=== PATIENT | male | born 1960 | race American Indian/Alaskan Native ===

== ENCOUNTER 2017-07-05 03:19 | Inpatient (IN) | payer MEDICARE ==
[2017-07-05 05:17] LABS: Hematocrit 40.7 % (35.5-45.6); Mean Corpuscular HGB Conc 35 % (32-34); Mean Corpuscular Hemoglobin 29 pg (28-32); Mean Corpuscular Volume 83 fl (84-94); Platelet Count 244 K/mm3 (140-440); Red Blood Count 4.89 M/mm3 (3.65-5.03); Red Cell Distribution Width 15.1 % (13.2-15.2)
[2017-07-05 05:35] LABS: BUN/Creatinine Ratio 17; Blood Urea Nitrogen 15 mg/dL (9-20); Calcium 9.2 mg/dL (8.4-10.2); Hemolysis Index 1
[2017-07-05 05:51] LABS: Band Neutrophils # (Manual) 0.8 K/mm3; Basophils % (Manual) 0 % (0.0-1.8); Eosinophils % (Manual) 0 % (0.0-4.3); Total Cells Counted 100
[2017-07-05 05:52] LABS: RBC Morphology Normal
[2017-07-05] MEDS ORDERED: NACL 0.9% 1000 ML 1,000 ML ONE (06:29)
[2017-07-05] MEDS ORDERED: NACL 0.9% 1000 ML 1,000 ML IV ONE (06:33)
[2017-07-05 06:46] LABS: Bacteria,Urine 1+ /HPF (Negative); Bilirubin,Urine NEG (Negative); Blood,Urine LG (Negative); Color,Urine Yellow (Yellow); Mucus,Urine FEW /HPF; Urobilinogen,Urine < 2.0 mg/dL (<2.0); WBC,Urine > 182.0 /HPF (0.0-6.0)
[2017-07-05] MEDS ORDERED: NACL 0.9% 1000 ML 3,000 ML IV ONE (07:07)
[2017-07-05] MEDS ORDERED: ZOFRAN IV ONE (07:07)
[2017-07-05] MEDS ORDERED: TYLENOL PO ONE (07:08)
[2017-07-05] MEDS ORDERED: SUBLIMAZE IV ONE (07:09)
[2017-07-05] MEDS ORDERED: HumuLIN R IV ONE (07:11)
[2017-07-05] MEDS ORDERED: BABY ASPIRIN PO ONE (07:12)
--- NOTE | 2017-07-05 07:12 | Emergency Department Report ---
HPI - General Chief Complaint: Fever Time Seen by Provider: 07/05/17 07:05 - HPI HPI: The patient is a 57-year-old male with a history of diabetes, presents for evaluation of abdominal and flank pain. The patient reports constant lower abdominal pain and bilateral flank pain for the past 1 week, progressive, moderate in severity, crampy in quality, and associated with dysuria. The patient shares that he was diagnosed with a urinary tract infection within the past 2-3 weeks. He reports compliance with antibiotics but worsening of his symptoms nonetheless. Prior to the past week he had not experienced bilateral flank pain. The patient denies trauma to the abdomen or flank, chills, night sweats, diarrhea, blood in the stool, dark tarry stool, genital discharge, inability to pass flatus. ED Past Medical Hx - Past Medical History Hx Hypertension: Yes Hx Diabetes: Yes - Surgical History Additional Surgical History: Vasectomy - Social History Smoking Status: Former Smoker Substance Use Type: None - Medications Home Medications: Home Medications Medication Instructions Recorded Confirmed Last Taken Type Glipizide/Metformin HCl 2 each PO BID 07/05/17 07/05/17 Unknown History [glipiZIDE-Metformin 5-500 mg] Insulin NPH Hum/Reg Insulin Hm 15 unit SQ QDAY 07/05/17 07/05/17 Unknown History [Humulin 70-30 Vial] Lisinopril [Zestril] 20 mg PO QDAY 07/05/17 07/05/17 Unknown History Tamsulosin [Flomax] 0.4 mg PO QDAY 07/05/17 07/05/17 Unknown History ED Review of Systems ROS: Stated complaint: FEVER,DIABETIC,,VOMITING Other details as noted in HPI Constitutional: denies: fever ENT: denies: throat or neck pain Respiratory: denies: cough, shortness of breath Cardiovascular: denies: chest pain Endocrine: denies unexplained weight loss or gain Gastrointestinal: reports abdominal pain, nausea Genitourinary: reports dysuria Musculoskeletal: denies: leg swelling Skin: denies: rash Neurological: denies: headache Hematological/Lymphatic: denies: easy bleeding or easy bruising Psych: denies sadness or hopelessness Physical Exam - Physical Exam Vital Signs: Vital Signs 07/05/17 07/05/17 07/05/17 04:26 04:48 06:34 Temperature 100.7 F H 100.7 F H 100.7 F H Pulse Rate 133 H 131 H 107 H Respiratory 18 18 20 Rate Blood Pressure 141/80 141/80 Blood Pressure 117/75 [Left] O2 Sat by Pulse 97 96 98 Oximetry 07/05/17 06:39 Temperature Pulse Rate Respiratory 20 Rate Blood Pressure Blood Pressure [Left] O2 Sat by Pulse 98 Oximetry Physical Exam: General: well-nourished, well-developed, no acute distress Head: Normocephalic, atraumatic Eyes: normal sclera ENT: Mucous membranes are pale and dry Neck: No neck stiffness, no cervical adenopathy Respiratory: Breath sounds equal bilaterally, no wheezing, rales, or rhonchi Cardio: S1 and S2 present, no murmurs, rubs, gallops, capillary refill is delayed Abdomen: Normoactive bowel sounds, soft abdomen, suprapubic and left lower quadrant tenderness to palpation present, no rigidity, no guarding or rebound tenderness Chest WALL/Back: No tenderness to palpation of the chest wall, bilateral CVA tenderness with percussion is present Musc: No pitting edema Skin: No rash Neuro: no facial drooping, normal speech Psych: Normal affect ED Course Vital Signs 07/05/17 07/05/17 07/05/17 04:26 04:48 06:34 Temperature 100.7 F H 100.7 F H 100.7 F H Pulse Rate 133 H 131 H 107 H Respiratory 18 18 20 Rate Blood Pressure 141/80 141/80 Blood Pressure 117/75 [Left] O2 Sat by Pulse 97 96 98 Oximetry 07/05/17 06:39 Temperature Pulse Rate Respiratory 20 Rate Blood Pressure Blood Pressure [Left] O2 Sat by Pulse 98 Oximetry ED Medical Decision Making - Lab Data Result diagrams: 07/05/17 04:59 07/05/17 04:59 - Medical Decision Making The patient was seen and examined by myself. The patient is placed on a cardiac rehabilitation program director and continuous pulse ox. On initial evaluation, the patient was found to be in no distress, although tachycardic and febrile, temperature 100.7. Evaluation orders are placed. IV access is established and the patient is given 1 L normal saline fluid bolus and Zofran for nausea, and IV analgesic for pain. He was given Tylenol for his elevated temperature. Lab results revealed elevated WBC of 16.9, elevated glucose of 265, and elevated urine WBC of 180 with positive leukocyte esterase and positive bacteria, consistent with acute urinary tract infection. As the patient's found to have results consistent with urinary tract infection, and has fever and bilateral flank pain , evaluation findings are consistent with acute pyelonephritis. The patient is given IV Zosyn for treatment of pyelonephritis. CT scan abdomen and pelvis is negative for appendicitis. Sclerotic and lytic lesions in the left intertrochanteric femoral region were observed on the CT scan and the patient was informed of so. Dedicated left femur radiographs are ordered and are pending. The on-call hospitalist service was contacted and informed of findings . They agreed to admit the patient for further treatment, evaluation, and close monitoring. The ED admit order was placed. The patient was admitted in guarded condition. Critical care attestation.: If time is entered above; I have spent that time in minutes in the direct care of this critically ill patient, excluding procedure time. ED Disposition Clinical Impression: Dehydration, Pyelonephritis, acute, Acute hyperglycemia, Acute abdominal pain in left lower quadrant, Bilateral flank pain Disposition: OP ADMIT IP TO THIS HOSP Is pt being admited?: Yes Does the pt Need Aspirin: Yes Condition: Serious Referrals: WILLIAN YOUNGBLOOD MD [Primary Care Provider] - 3-5 Days Time of Disposition: 07:10
[2017-07-05] MEDS ORDERED: NACL ONE (07:26)
[2017-07-05 07:44] LABS: Alanine Aminotransferase 27 units/L (7-56); Albumin 3.6 g/dL (3.9-5); Lipase 31 units/L (13-60)
[2017-07-05 07:53] LABS: Bilirubin,Direct < 0.2 mg/dL (0-0.2)
[2017-07-05] MEDS ORDERED: ZOSYN/NS 3.375GM/50ML 3.375 GM/50 ML BAG IV SCH (08:00)
--- NOTE | 2017-07-05 08:15 | Cat Scan Report ---
FINAL REPORT EXAM: CT ABDOMEN PELVIS W CON HISTORY: right flank and abdominal pain, fever, n/v TECHNIQUE: CT images are acquired through the Abdomen and Pelvis in late arterial and delayed phases following intravenous administration of contrast. Transaxial, coronal and sagittal reformations are provided. PRIORS: None FINDINGS: Partially visualized intrathoracic contents are unremarkable. The liver, gallbladder, pancreas, spleen, and adrenal glands are unremarkable. Kidneys show no worrisome lesions, hydronephrosis, or calculi. There is a 2.7 centimeter simple interpolar right renal cyst urinary bladder is unremarkable. Small and large bowel are normal in caliber. Appendix is normal. No free air, free fluid, or lymphadenopathy identified. Aorta is normal in course and caliber. Superficial soft tissues are unremarkable. No acute or aggressive appearing skeletal findings. Partially visualized intertrochanteric left femoral lesion shows lytic and sclerotic components with suggested narrow zone of transition. IMPRESSION: No acute findings in the abdomen or pelvis. Partially visualized intertrochanteric left femoral lesion shows lytic and sclerotic components with suggested narrow zone of transition. Although incompletely evaluated on this exam, initial differential diagnosis includes bone infarct, nonossifying fibroma another probably benign entities. Routine follow-up left femur radiographs are recommended for initial further evaluation.
[2017-07-05] MEDS ORDERED: DILAUDID IV PRN (09:08)
[2017-07-05] MEDS ORDERED: D50W (25GM) Syringe IV PRN (09:13)
--- NOTE | 2017-07-05 11:14 | History and Physical Report ---
History of Present Illness Date of examination: 07/05/17 Date of admission: 07/05/17 08:42 Chief complaint: Bilateral back pain with fever History of present illness: Patient is a 57-year-old male with past medical history of hypertension, diabetes mellitus, BPH, who presents to the hospital with complaints of bilateral flank lower back pain that has been ongoing for a few weeks has been on to complete doses of antibiotics with no resolution. Reports low-grade fever at home and also urinary hesitancy wash in his symptoms pain on the back is rated 6/10 in intensity . Testicle to him to come to the ER where he was noted to be with elevated white count and also low-grade fever with diagnosed acute cystitis. Patient denies any prior history of the same. He reports that the pain is constant and crampy in quality and the fistula would dysuria. He denies any trauma to his abdomen or back. ROS Constitutional: Fever but no, fatigue or weight loss. Skin: No rash. Eyes: No recent vision problems or eye pain. ENT: No congestion, ear pain, or sore throat. Endocrine: No thyroid problems. Cardiovascular: No chest pain. Respiratory: No cough, shortness of breath, congestion, or wheezing. Gastrointestinal: Bilateral flank pain No abdominal pain, nausea, vomiting, or diarrhea. Genitourinary: Reports dysuria Musculoskeletal: No joint swelling. Neurologic: No seizures. Hematologic: No unusual bruising or bleeding. Psychiatric: No psychiatric problems, hallucinations or depression. All other systems reviewed and otherwise negative. Past History Past Medical History: CAD, diabetes, hypertension, other (BPH) Past Surgical History: Other (vasectomy) Social history: , full code. denies: smoking, alcohol abuse, prescription drug abuse Family history: no significant family history Medications and Allergies Allergies Allergy/AdvReac Type Severity Reaction Status Date / Time No Known Allergies Allergy Unverified 07/05/17 04:55 Home Medications Medication Instructions Recorded Confirmed Last Taken Type Glipizide/Metformin HCl 2 each PO BID 07/05/17 07/05/17 Unknown History [glipiZIDE-Metformin 5-500 mg] Insulin NPH Hum/Reg Insulin Hm 15 unit SQ QDAY 07/05/17 07/05/17 Unknown History [Humulin 70-30 Vial] Lisinopril [Zestril] 20 mg PO QDAY 07/05/17 07/05/17 Unknown History Tamsulosin [Flomax] 0.4 mg PO QDAY 07/05/17 07/05/17 Unknown History Active Meds: Active Medications Dextrose (D50w (25gm) Syringe) 50 ml IV PRN PRN PRN Reason: Hypoglycemia Hydromorphone HCl (Dilaudid) 0.25 mg IV Q4H PRN PRN Reason: Pain, Moderate (4-6) Piperacillin Sod/Tazobactam Sod (Zosyn/Ns 4.5gm/100ml) 4.5 gm in 100 mls @ 200 mls/hr IV Q8HR AUDI; Protocol Insulin Human Isoph/Insulin Regular (Humulin 70/30) 15 unit SUB-Q QDAY AUDI Insulin Human Lispro (Humalog) 0 unit SUB-Q ACHS AUDI; Protocol Lisinopril (Zestril) 20 mg PO QDAY AUDI Tamsulosin HCl (Flomax) 0.4 mg PO QDAY AUDI Exam - Physical Exam Narrative exam: VITAL SIGNS: Reviewed. GENERAL: The patient appeared well nourished and normally developed. Otherwise ill appearing. Uncomfortable. Vital signs as documented. HEAD: No signs of head trauma. EYES: Pupils are equal. Extraocular motions intact. EARS: Hearing grossly intact. MOUTH: Oropharynx is normal. NECK: No adenopathy, no JVD. CHEST: Chest with clear breath sounds bilaterally. No wheezes, rales, or rhonchi. CARDIAC: Regular rate and rhythm. S1 and S2, without murmurs, gallops, or rubs. VASCULAR: No Edema. Peripheral pulses normal and equal in all extremities. ABDOMEN: Soft, without detectable tenderness. No sign of distention. No rebound or guarding, and no masses palpated. Bowel Sounds normal. Positive CVA tenderness MUSCULOSKELETAL: Good range of motion of all major joints. Extremities without clubbing, cyanosis or edema. NEUROLOGIC EXAM: Alert and oriented x 3. No focal sensory or strength deficits. Speech normal. Follows commands. PSYCHIATRIC: Mood normal. SKIN: No rash or lesions. - Constitutional Vitals: Temp Pulse Resp BP Pulse Ox 98.7 F 99 H 18 124/67 99 07/05/17 11:03 07/05/17 11:03 07/05/17 11:03 07/05/17 11:03 07/05/17 11:03 Results - Labs CBC & Chem 7: 07/05/17 04:59 07/05/17 04:59 Labs: Laboratory Last Values WBC 16.9 K/mm3 (4.5-11.0) H 07/05/17 04:59 RBC 4.89 M/mm3 (3.65-5.03) 07/05/17 04:59 Hgb 14.0 gm/dl (11.8-15.2) 07/05/17 04:59 Hct 40.7 % (35.5-45.6) 07/05/17 04:59 MCV 83 fl (84-94) L 07/05/17 04:59 MCH 29 pg (28-32) 07/05/17 04:59 MCHC 35 % (32-34) H 07/05/17 04:59 RDW 15.1 % (13.2-15.2) 07/05/17 04:59 Plt Count 244 K/mm3 (140-440) 07/05/17 04:59 Add Manual Diff Complete 07/05/17 04:59 Total Counted 100 07/05/17 04:59 Seg Neuts % (Manual) 84.0 % (40.0-70.0) H 07/05/17 04:59 Band Neutrophils % 5.0 % 07/05/17 04:59 Lymphocytes % (Manual) 4.0 % (13.4-35.0) L 07/05/17 04:59 Reactive Lymphs % (Man) 0 % 07/05/17 04:59 Monocytes % (Manual) 7.0 % (0.0-7.3) 07/05/17 04:59 Eosinophils % (Manual) 0 % (0.0-4.3) 07/05/17 04:59 Basophils % (Manual) 0 % (0.0-1.8) 07/05/17 04:59 Metamyelocytes % 0 % 07/05/17 04:59 Myelocytes % 0 % 07/05/17 04:59 Promyelocytes % 0 % 07/05/17 04:59 Blast Cells % 0 % 07/05/17 04:59 Nucleated RBC % Not Reportable 07/05/17 04:59 Seg Neutrophils # Man 14.2 K/mm3 (1.8-7.7) H 07/05/17 04:59 Band Neutrophils # 0.8 K/mm3 07/05/17 04:59 Lymphocytes # (Manual) 0.7 K/mm3 (1.2-5.4) L 07/05/17 04:59 Abs React Lymphs (Man) 0.0 K/mm3 07/05/17 04:59 Monocytes # (Manual) 1.2 K/mm3 (0.0-0.8) H 07/05/17 04:59 Eosinophils # (Manual) 0.0 K/mm3 (0.0-0.4) 07/05/17 04:59 Basophils # (Manual) 0.0 K/mm3 (0.0-0.1) 07/05/17 04:59 Metamyelocytes # 0.0 K/mm3 07/05/17 04:59 Myelocytes # 0.0 K/mm3 07/05/17 04:59 Promyelocytes # 0.0 K/mm3 07/05/17 04:59 Blast Cells # 0.0 K/mm3 07/05/17 04:59 WBC Morphology Not Reportable 07/05/17 04:59 Hypersegmented Neuts Not Reportable 07/05/17 04:59 Hyposegmented Neuts Not Reportable 07/05/17 04:59 Hypogranular Neuts Not Reportable 07/05/17 04:59 Smudge Cells Not Reportable 07/05/17 04:59 Toxic Granulation Not Reportable 07/05/17 04:59 Toxic Vacuolation Not Reportable 07/05/17 04:59 Dohle Bodies Not Reportable 07/05/17 04:59 Pelger-Huet Anomaly Not Reportable 07/05/17 04:59 Hank Rods Not Reportable 07/05/17 04:59 Platelet Estimate Appears normal 07/05/17 04:59 Clumped Platelets Not Reportable 07/05/17 04:59 Plt Clumps, EDTA Not Reportable 07/05/17 04:59 Large Platelets Not Reportable 07/05/17 04:59 Giant Platelets Not Reportable 07/05/17 04:59 Platelet Satelliting Not Reportable 07/05/17 04:59 Plt Morphology Comment Not Reportable 07/05/17 04:59 RBC Morphology Normal 07/05/17 04:59 Dimorphic RBCs Not Reportable 07/05/17 04:59 Polychromasia Not Reportable 07/05/17 04:59 Hypochromasia Not Reportable 07/05/17 04:59 Poikilocytosis Not Reportable 07/05/17 04:59 Anisocytosis Not Reportable 07/05/17 04:59 Microcytosis Not Reportable 07/05/17 04:59 Macrocytosis Not Reportable 07/05/17 04:59 Spherocytes Not Reportable 07/05/17 04:59 Pappenheimer Bodies Not Reportable 07/05/17 04:59 Sickle Cells Not Reportable 07/05/17 04:59 Target Cells Not Reportable 07/05/17 04:59 Tear Drop Cells Not Reportable 07/05/17 04:59 Ovalocytes Not Reportable 07/05/17 04:59 Helmet Cells Not Reportable 07/05/17 04:59 [place] Bodies Not Reportable 07/05/17 04:59 [place] Rings Not Reportable 07/05/17 04:59 Juma Cells Not Reportable 07/05/17 04:59 Bite Cells Not Reportable 07/05/17 04:59 Crenated Cell Not Reportable 07/05/17 04:59 Elliptocytes Not Reportable 07/05/17 04:59 Acanthocytes (Spur) Not Reportable 07/05/17 04:59 Rouleaux Not Reportable 07/05/17 04:59 Hemoglobin C Crystals Not Reportable 07/05/17 04:59 Schistocytes Not Reportable 07/05/17 04:59 Malaria parasites Not Reportable 07/05/17 04:59 [place] Bodies Not Reportable 07/05/17 04:59 Hem Pathologist Commnt No 07/05/17 04:59 VBG pH 7.407 (7.320-7.420) 07/05/17 04:59 Sodium 141 mmol/L (137-145) 07/05/17 04:59 Potassium 4.1 mmol/L (3.6-5.0) 07/05/17 04:59 Chloride 99.6 mmol/L (98-107) 07/05/17 04:59 Carbon Dioxide 23 mmol/L (22-30) 07/05/17 04:59 Anion Gap 23 mmol/L 07/05/17 04:59 BUN 15 mg/dL (9-20) 07/05/17 04:59 Creatinine 0.9 mg/dL (0.8-1.5) 07/05/17 04:59 Estimated GFR > 60 ml/min 07/05/17 04:59 BUN/Creatinine Ratio 17 % 07/05/17 04:59 Glucose 263 mg/dL (75-100) H 07/05/17 04:59 POC Glucose 252 (70-105) H 07/05/17 09:56 Lactic Acid 1.80 mmol/L (0.7-2.0) 07/05/17 07:15 Calcium 9.2 mg/dL (8.4-10.2) 07/05/17 04:59 Total Bilirubin 0.30 mg/dL (0.1-1.2) 07/05/17 07:15 Direct Bilirubin < 0.2 mg/dL (0-0.2) 07/05/17 07:15 Indirect Bilirubin 0.1 mg/dL 07/05/17 07:15 AST 16 units/L (5-40) 07/05/17 07:15 ALT 27 units/L (7-56) 07/05/17 07:15 Alkaline Phosphatase 99 units/L (35-129) 07/05/17 07:15 NT-Pro-B Natriuret Pep 23.87 pg/mL (0-900) 07/05/17 07:15 Total Protein 6.9 g/dL (6.3-8.2) 07/05/17 07:15 Albumin 3.6 g/dL (3.9-5) L 07/05/17 07:15 Albumin/Globulin Ratio 1.1 % 07/05/17 07:15 Lipase 31 units/L (13-60) 07/05/17 07:15 Urine Color Yellow (Yellow) 07/05/17 06:34 Urine Turbidity Clear (Clear) 07/05/17 06:34 Urine pH 5.0 (5.0-7.0) 07/05/17 06:34 Ur Specific [place] 1.011 (1.003-1.030) 07/05/17 06:34 Urine Protein 30 mg/dl mg/dL (Negative) 07/05/17 06:34 Urine Glucose (UA) 50 mg/dL (Negative) 07/05/17 06:34 Urine Ketones Neg mg/dL (Negative) 07/05/17 06:34 Urine Blood Lg (Negative) 07/05/17 06:34 Urine Nitrite Neg (Negative) 07/05/17 06:34 Urine Bilirubin Neg (Negative) 07/05/17 06:34 Urine Urobilinogen < 2.0 mg/dL (<2.0) 07/05/17 06:34 Ur Leukocyte Esterase Lg (Negative) 07/05/17 06:34 Urine WBC (Auto) > 182.0 /HPF (0.0-6.0) H 07/05/17 06:34 Urine RBC (Auto) 23.0 /HPF (0.0-6.0) 07/05/17 06:34 U Epithel Cells (Auto) < 1.0 /HPF (0-13.0) 07/05/17 06:34 Urine Bacteria (Auto) 1+ /HPF (Negative) 07/05/17 06:34 Urine WBC Clumps 2+ /HPF 07/05/17 06:34 Urine Mucus Few /HPF 07/05/17 06:34 - Imaging and Cardiology CT scan - abdomen: image reviewed (left femoral lesion lytic and sclerotic componets. ?fibroma) Assessment and Plan Assessment and plan: Patient is a 57-year-old male with past medical history of hypertension, diabetes mellitus, BPH, who presents to the hospital with complaints of bilateral flank lower back pain that has been ongoing for a few weeks has been on to complete doses of antibiotics with no resolution. Reports low-grade fever at home and also urinary hesitancy wash in his symptoms pain on the back is rated 6/10 in intensity . Testicle to him to come to the ER where he was noted to be with elevated white count and also low-grade fever with diagnosed acute cystitis. Patient denies any prior history of the same. He reports that the pain is constant and crampy in quality and the fistula would dysuria. He denies any trauma to his abdomen or back. Sepsis secondary to Acute cystitis -failed outpatient therapy, POA DM Type 2 with hyperglycemia Acute cystitis Flank Pain secondary to Acute cystitis HTN BPH Lytic lesion Plan Admit to [facility] Start empiric abx with zosyn Accucheck AC/HS Renal/Bladder US Flomax pAIN CONTROL IV FLUIDS PER SEPSIS PROTOCOL BP control Repeat CT outpatient Dvt/GI prophy Plan of care discussed with family in detail, all questions answered. Advance Directives: Yes Plan of care discussed with patient/family: Yes
--- NOTE | 2017-07-05 11:44 | XRay Report ---
LEFT FEMUR: HISTORY: Left leg pain, intertrochanteric lesion on CT The CT abdomen pelvis performed on 07/05/17 was reviewed. The mixed density lesion in the proximal left femur is poorly demonstrated on x-ray. The lesion appears to measure 5.4 x 3.8 cm. There is no evidence for associated fracture, periostitis or bony destruction. The remainder of the left femur is unremarkable. IMPRESSION: Mixed density lesion in the proximal left femur as described. It has a nonspecific appearance on x-ray but no obvious findings of bony destruction or malignancy is appreciated. MRI with and without contrast to further evaluate this lesion could be obtained if needed. I suspect a benign etiology.
[2017-07-05] MEDS: HumaLOG SUB-Q SCH ×3 (12:18→21:28)
[2017-07-05] MEDS: ZOSYN/NS 4.5GM/100ML 4.5 GM/100 ML VIAL IV SCH ×2 (14:55→21:20)
--- NOTE | 2017-07-05 19:04 | Ultrasound Report ---
FINAL REPORT EXAM: US RENAL BILAT HISTORY: urianry retension, BPH TECHNIQUE: Directed sonography of the retroperitoneum. PRIORS: CT abdomen and pelvis of same date. FINDINGS: The right kidney measures 12.5 cm in longest dimension and the left kidney measures 12.4 cm in longest dimension. Rounded, cystic focus in the right kidney upper pole measuring 2.3 x 2.1 x 2.5 cm. Renal cortical echotexture within normal limits. No intrarenal calculi, significant hydronephrosis or abnormal perinephric fluid collections. Ovoid and heterogeneous, hypoechoic focus noted in the bladder base measuring approximately 2.9 x 1.9 x 3.0 cm probably representing partially calcified prostatomegaly as noted on comparison study. Remainder of visualized urinary bladder grossly unremarkable. IMPRESSION: 1. No significant hydronephrosis. 2. Right renal cyst. 3. Nonspecific prostatomegaly.
[2017-07-06 05:30] LABS: Hematocrit 37.1 % (35.5-45.6); Hemoglobin 12.8 gm/dl (11.8-15.2); Mean Corpuscular HGB Conc 34 % (32-34); Mean Corpuscular Hemoglobin 29 pg (28-32); Mean Corpuscular Volume 83 fl (84-94); Platelet Count 224 K/mm3 (140-440); Red Blood Count 4.46 M/mm3 (3.65-5.03); Red Cell Distribution Width 15.3 % (13.2-15.2)
[2017-07-06 05:51] LABS: BUN/Creatinine Ratio 11; Blood Urea Nitrogen 9 mg/dL (9-20); Calcium 8.8 mg/dL (8.4-10.2); Hemolysis Index 5
[2017-07-06] MEDS: ZOSYN/NS 4.5GM/100ML 4.5 GM/100 ML VIAL IV SCH ×4 (06:06→21:32)
[2017-07-06] MEDS: HumaLOG SUB-Q SCH ×4 (08:36→23:18)
--- NOTE | 2017-07-06 09:32 | Progress Note ---
Assessment and Plan Assessment and plan: Patient is a 57-year-old male with past medical history of hypertension, diabetes mellitus, BPH, who presents to the hospital with complaints of bilateral flank lower back pain that has been ongoing for a few weeks has been on to complete doses of antibiotics with no resolution. Reports low-grade fever at home and also urinary hesitancy wash in his symptoms pain on the back is rated 6/10 in intensity prompted him to come to the ER where he was noted to be with elevated white count and also low-grade fever with diagnosed acute cystitis. Patient denies any prior history of the same. He reports that the pain is constant and crampy in quality and the fistula would dysuria. He denies any trauma to his abdomen or back. Sepsis secondary to Acute cystitis -failed outpatient therapy, POA * Continue IV fluids. Await cultures. Urine culture pending. * GNR septiciemia DM Type 2 with hyperglycemia * Accucheck AC/HS. Insulin sliding scale. Increase NPH TO 20units subq Acute cystitis * Urine culture pending. Flank Pain secondary to Acute cystitis * Mixed density lesion in the proximal left femur. Does not appear malignant. Patient advised to have recheck HTN * Lisnopril. BPH * BPH Lytic lesion * Mixed density lesion in the proximal left femur. Does not appear malignant. Patient advised to have recheck DVT History Interval history: Patient seen and examined today reports abdominal pain which is not improving. Rates it a 5/10 intensity down to 3/10. Denies any chest pain nausea vomiting or diarrhea. Hospitalist Physical - Physical exam Narrative exam: VITAL SIGNS: Reviewed. GENERAL: The patient appeared well nourished and normally developed. clinically improved Vital signs as documented. HEAD: No signs of head trauma. EYES: Pupils are equal. Extraocular motions intact. EARS: Hearing grossly intact. MOUTH: Oropharynx is normal. NECK: No adenopathy, no JVD. CHEST: Chest with clear breath sounds bilaterally. No wheezes, rales, or rhonchi. CARDIAC: Regular rate and rhythm. S1 and S2, without murmurs, gallops, or rubs. VASCULAR: No Edema. Peripheral pulses normal and equal in all extremities. ABDOMEN: Soft, without detectable tenderness. No sign of distention. No rebound or guarding, and no masses palpated. Bowel Sounds normal. Positive CVA tenderness-improved MUSCULOSKELETAL: Good range of motion of all major joints. Extremities without clubbing, cyanosis or edema. NEUROLOGIC EXAM: Alert and oriented x 3. No focal sensory or strength deficits. Speech normal. Follows commands. PSYCHIATRIC: Mood normal. SKIN: No rash or lesions. - Constitutional Vitals: Temp Pulse Resp BP Pulse Ox 95.4 F L 75 18 108/51 92 07/06/17 07:36 07/06/17 07:36 07/06/17 04:57 07/06/17 07:36 07/06/17 07:36 Results - Labs CBC & Chem 7: 07/06/17 05:07 07/06/17 05:07 Labs: Laboratory Last Values WBC 15.4 K/mm3 (4.5-11.0) H 07/06/17 05:07 RBC 4.46 M/mm3 (3.65-5.03) 07/06/17 05:07 Hgb 12.8 gm/dl (11.8-15.2) 07/06/17 05:07 Hct 37.1 % (35.5-45.6) 07/06/17 05:07 MCV 83 fl (84-94) L 07/06/17 05:07 MCH 29 pg (28-32) 07/06/17 05:07 MCHC 34 % (32-34) 07/06/17 05:07 RDW 15.3 % (13.2-15.2) H 07/06/17 05:07 Plt Count 224 K/mm3 (140-440) 07/06/17 05:07 Add Manual Diff Complete 07/05/17 04:59 Total Counted 100 07/05/17 04:59 Seg Neuts % (Manual) 84.0 % (40.0-70.0) H 07/05/17 04:59 Band Neutrophils % 5.0 % 07/05/17 04:59 Lymphocytes % (Manual) 4.0 % (13.4-35.0) L 07/05/17 04:59 Reactive Lymphs % (Man) 0 % 07/05/17 04:59 Monocytes % (Manual) 7.0 % (0.0-7.3) 07/05/17 04:59 Eosinophils % (Manual) 0 % (0.0-4.3) 07/05/17 04:59 Basophils % (Manual) 0 % (0.0-1.8) 07/05/17 04:59 Metamyelocytes % 0 % 07/05/17 04:59 Myelocytes % 0 % 07/05/17 04:59 Promyelocytes % 0 % 07/05/17 04:59 Blast Cells % 0 % 07/05/17 04:59 Nucleated RBC % Not Reportable 07/05/17 04:59 Seg Neutrophils # Man 14.2 K/mm3 (1.8-7.7) H 07/05/17 04:59 Band Neutrophils # 0.8 K/mm3 07/05/17 04:59 Lymphocytes # (Manual) 0.7 K/mm3 (1.2-5.4) L 07/05/17 04:59 Abs React Lymphs (Man) 0.0 K/mm3 07/05/17 04:59 Monocytes # (Manual) 1.2 K/mm3 (0.0-0.8) H 07/05/17 04:59 Eosinophils # (Manual) 0.0 K/mm3 (0.0-0.4) 07/05/17 04:59 Basophils # (Manual) 0.0 K/mm3 (0.0-0.1) 07/05/17 04:59 Metamyelocytes # 0.0 K/mm3 07/05/17 04:59 Myelocytes # 0.0 K/mm3 07/05/17 04:59 Promyelocytes # 0.0 K/mm3 07/05/17 04:59 Blast Cells # 0.0 K/mm3 07/05/17 04:59 WBC Morphology Not Reportable 07/05/17 04:59 Hypersegmented Neuts Not Reportable 07/05/17 04:59 Hyposegmented Neuts Not Reportable 07/05/17 04:59 Hypogranular Neuts Not Reportable 07/05/17 04:59 Smudge Cells Not Reportable 07/05/17 04:59 Toxic Granulation Not Reportable 07/05/17 04:59 Toxic Vacuolation Not Reportable 07/05/17 04:59 Dohle Bodies Not Reportable 07/05/17 04:59 Pelger-Huet Anomaly Not Reportable 07/05/17 04:59 Hank Rods Not Reportable 07/05/17 04:59 Platelet Estimate Appears normal 07/05/17 04:59 Clumped Platelets Not Reportable 07/05/17 04:59 Plt Clumps, EDTA Not Reportable 07/05/17 04:59 Large Platelets Not Reportable 07/05/17 04:59 Giant Platelets Not Reportable 07/05/17 04:59 Platelet Satelliting Not Reportable 07/05/17 04:59 Plt Morphology Comment Not Reportable 07/05/17 04:59 RBC Morphology Normal 07/05/17 04:59 Dimorphic RBCs Not Reportable 07/05/17 04:59 Polychromasia Not Reportable 07/05/17 04:59 Hypochromasia Not Reportable 07/05/17 04:59 Poikilocytosis Not Reportable 07/05/17 04:59 Anisocytosis Not Reportable 07/05/17 04:59 Microcytosis Not Reportable 07/05/17 04:59 Macrocytosis Not Reportable 07/05/17 04:59 Spherocytes Not Reportable 07/05/17 04:59 Pappenheimer Bodies Not Reportable 07/05/17 04:59 Sickle Cells Not Reportable 07/05/17 04:59 Target Cells Not Reportable 07/05/17 04:59 Tear Drop Cells Not Reportable 07/05/17 04:59 Ovalocytes Not Reportable 07/05/17 04:59 Helmet Cells Not Reportable 07/05/17 04:59 [place] Bodies Not Reportable 07/05/17 04:59 [place] Rings Not Reportable 07/05/17 04:59 [place] Cells Not Reportable 07/05/17 04:59 Bite Cells Not Reportable 07/05/17 04:59 Crenated Cell Not Reportable 07/05/17 04:59 Elliptocytes Not Reportable 07/05/17 04:59 Acanthocytes (Spur) Not Reportable 07/05/17 04:59 Rouleaux Not Reportable 07/05/17 04:59 Hemoglobin C Crystals Not Reportable 07/05/17 04:59 Schistocytes Not Reportable 07/05/17 04:59 Malaria parasites Not Reportable 07/05/17 04:59 [place] Bodies Not Reportable 07/05/17 04:59 Hem Pathologist Commnt No 07/05/17 04:59 VBG pH 7.407 (7.320-7.420) 07/05/17 04:59 Sodium 142 mmol/L (137-145) 07/06/17 05:07 Potassium 3.7 mmol/L (3.6-5.0) 07/06/17 05:07 Chloride 103.4 mmol/L (98-107) 07/06/17 05:07 Carbon Dioxide 25 mmol/L (22-30) 07/06/17 05:07 Anion Gap 17 mmol/L 07/06/17 05:07 BUN 9 mg/dL (9-20) 07/06/17 05:07 Creatinine 0.8 mg/dL (0.8-1.5) 07/06/17 05:07 Estimated GFR > 60 ml/min 07/06/17 05:07 BUN/Creatinine Ratio 11 % 07/06/17 05:07 Glucose 204 mg/dL (75-100) H 07/06/17 05:07 POC Glucose 202 (70-105) H 07/06/17 06:37 Lactic Acid 1.80 mmol/L (0.7-2.0) 07/05/17 07:15 Calcium 8.8 mg/dL (8.4-10.2) 07/06/17 05:07 Total Bilirubin 0.30 mg/dL (0.1-1.2) 07/05/17 07:15 Direct Bilirubin < 0.2 mg/dL (0-0.2) 07/05/17 07:15 Indirect Bilirubin 0.1 mg/dL 07/05/17 07:15 AST 16 units/L (5-40) 07/05/17 07:15 ALT 27 units/L (7-56) 07/05/17 07:15 Alkaline Phosphatase 99 units/L (35-129) 07/05/17 07:15 NT-Pro-B Natriuret Pep 23.87 pg/mL (0-900) 07/05/17 07:15 Total Protein 6.9 g/dL (6.3-8.2) 07/05/17 07:15 Albumin 3.6 g/dL (3.9-5) L 07/05/17 07:15 Albumin/Globulin Ratio 1.1 % 07/05/17 07:15 Lipase 31 units/L (13-60) 07/05/17 07:15 Urine Color Yellow (Yellow) 07/05/17 06:34 Urine Turbidity Clear (Clear) 07/05/17 06:34 Urine pH 5.0 (5.0-7.0) 07/05/17 06:34 Ur Specific [place] 1.011 (1.003-1.030) 07/05/17 06:34 Urine Protein 30 mg/dl mg/dL (Negative) 07/05/17 06:34 Urine Glucose (UA) 50 mg/dL (Negative) 07/05/17 06:34 Urine Ketones Neg mg/dL (Negative) 07/05/17 06:34 Urine Blood Lg (Negative) 07/05/17 06:34 Urine Nitrite Neg (Negative) 07/05/17 06:34 Urine Bilirubin Neg (Negative) 07/05/17 06:34 Urine Urobilinogen < 2.0 mg/dL (<2.0) 07/05/17 06:34 Ur Leukocyte Esterase Lg (Negative) 07/05/17 06:34 Urine WBC (Auto) > 182.0 /HPF (0.0-6.0) H 07/05/17 06:34 Urine RBC (Auto) 23.0 /HPF (0.0-6.0) 07/05/17 06:34 U Epithel Cells (Auto) < 1.0 /HPF (0-13.0) 07/05/17 06:34 Urine Bacteria (Auto) 1+ /HPF (Negative) 07/05/17 06:34 Urine WBC Clumps 2+ /HPF 07/05/17 06:34 Urine Mucus Few /HPF 07/05/17 06:34 - Imaging and Cardiology Imaging and Cardiology: Renal ultrasound is shows no obstruction.
[2017-07-06] MEDS: ZESTRIL PO SCH (10:32)
[2017-07-06] MEDS: FLOMAX PO SCH (10:39)
[2017-07-07] MEDS: ZOSYN/NS 4.5GM/100ML 4.5 GM/100 ML VIAL IV SCH (05:35)
[2017-07-07 06:57] LABS: Hematocrit 37.1 % (35.5-45.6); Hemoglobin 12.5 gm/dl (11.8-15.2); Mean Corpuscular HGB Conc 34 % (32-34); Mean Corpuscular Hemoglobin 28 pg (28-32); Mean Corpuscular Volume 84 fl (84-94); Platelet Count 222 K/mm3 (140-440); Red Cell Distribution Width 14.8 % (13.2-15.2)
[2017-07-07 07:18] LABS: BUN/Creatinine Ratio 10; Blood Urea Nitrogen 8 mg/dL (9-20); Calcium 8.7 mg/dL (8.4-10.2); Hemolysis Index 2
--- NOTE | 2017-07-07 08:40 | Discharge Summary ---
Providers - Providers Date of Admission: 07/05/17 08:42 Attending physician: AZAR ALBERT MD Primary care physician: WILLIAN YOUNGBLOOD Hospitalization Reason for admission: sepsis Condition: Stable Hospital course: Patient is a 57-year-old male with past medical history of hypertension, diabetes mellitus, BPH, who presents to the hospital with complaints of bilateral flank lower back pain that has been ongoing for a few weeks has been on to complete doses of antibiotics with no resolution. Reports low-grade fever at home and also urinary hesitancy wash in his symptoms pain on the back is rated 6/10 in intensity prompted him to come to the ER where he was noted to be with elevated white count and also low-grade fever with diagnosed acute cystitis. Patient denies any prior history of the same. He reports that the pain is constant and crampy in quality and the fistula would dysuria. He denies any trauma to his abdomen or back. Sepsis secondary to Acute cystitis -failed outpatient therapy, POA * Continue IV fluids. Await cultures. Urine culture pending. * GNR septiciemia DM Type 2 with hyperglycemia * Accucheck AC/HS. Insulin sliding scale. Increase NPH TO 20units subq Acute cystitis * Urine culture pending. Flank Pain secondary to Acute cystitis * Mixed density lesion in the proximal left femur. Does not appear malignant. Patient advised to have recheck HTN * Lisnopril. BPH * BPH Lytic lesion * Mixed density lesion in the proximal left femur. Does not appear malignant. Patient advised to have recheck DVT Disposition: DC-01 TO HOME OR SELFCARE Time spent for discharge: 35 mins Core Measure Documentation - Palliative Care Palliative Care/ Comfort Measures: Not Applicable - Core Measures Any of the following diagnoses?: none - VTE Discharge Requirements Deep Vein Thrombosis/Pulmonary Embolism Present on Admission: No Exam - Physical Exam Narrative exam: VITAL SIGNS: Reviewed. GENERAL: The patient appeared well nourished and normally developed. clinically improved Vital signs as documented. HEAD: No signs of head trauma. EYES: Pupils are equal. Extraocular motions intact. EARS: Hearing grossly intact. MOUTH: Oropharynx is normal. NECK: No adenopathy, no JVD. CHEST: Chest with clear breath sounds bilaterally. No wheezes, rales, or rhonchi. CARDIAC: Regular rate and rhythm. S1 and S2, without murmurs, gallops, or rubs. VASCULAR: No Edema. Peripheral pulses normal and equal in all extremities. ABDOMEN: Soft, without detectable tenderness. No sign of distention. No rebound or guarding, and no masses palpated. Bowel Sounds normal. Positive CVA tenderness-improved MUSCULOSKELETAL: Good range of motion of all major joints. Extremities without clubbing, cyanosis or edema. NEUROLOGIC EXAM: Alert and oriented x 3. No focal sensory or strength deficits. Speech normal. Follows commands. PSYCHIATRIC: Mood normal. SKIN: No rash or lesions. - Constitutional Vitals: Temp Pulse Resp BP Pulse Ox 98.2 F 65 16 101/49 94 07/07/17 07:41 07/07/17 07:41 07/07/17 07:41 07/07/17 07:41 07/07/17 07:41 Plan Activity: advance as tolerated, fall precautions Diet: diabetic Follow up with: WILLIAN YOUNGBLOOD MD [Primary Care Provider] - 3-5 Days Prescriptions: Levofloxacin [Levaquin] 750 mg PO QDAY #7 tablet
[2017-07-07] MEDS: HumaLOG SUB-Q SCH ×2 (08:55→12:28)
[2017-07-07] MEDS ORDERED: LEVAQUIN PO SCH (10:00)
[2017-07-07] MEDS: ZESTRIL PO SCH (10:25)
[2017-07-07] MEDS: FLOMAX PO SCH (10:26)
[2017-07-07 11:54] VITALS: BP 133/81
== END 2017-07-07 13:08 | disposition home or self-care (01) | DRG 872 ==
LOC: ED 03:19 → 3A 08:42
PROVIDERS: ADMIT Internal Medicine; ATTEND Internal Medicine
DX: A41.50 Gram-negative sepsis, unspecified (principal); N30.00 Acute cystitis without hematuria; E11.65 Type 2 diabetes mellitus with hyperglycemia; I10 Essential (primary) hypertension; N40.0 Benign prostatic hyperplasia without lower urinary tract symptoms; M89.9 Disorder of bone, unspecified
CPT/HCPCS: 36415; 74177; 76770; 80048; 80074; 81001; 82140; 82805; 82962; 83690; 83880; 85007; 85025; 85027; 87040; 87076; 87086; 87186; 93005; 93010; 96361; 96365; 96372; 96375; J1170; J1815; J2405; J2543; J3010; J7030; Q9967